=== PATIENT | male | born 1965 | race African-American/Black ===

== ENCOUNTER 2016-06-14 22:21 | Inpatient (IN) | payer MEDICAID ==
[~2016-06-14] VITALS: Ht 182.9 cm; Wt 104.3 kg
[~2016-06-14 22:21] MED LIST: ALDACTONE25 M1 PO; ASPIRIN81 M1 PO; ATORVASTATIN CA20 MG PO; LASIX20 MG PO; LISINOPRIL5 M1 PO; TOPROL XL25 MG PO
[2016-06-14 22:37] VITALS: BP 151/110
--- NOTE | 2016-06-14 22:53 | NUR ---
PT TAKEN TO [facility] FROM [facility]
--- NOTE | 2016-06-14 23:08 | NUR ---
PT RETURN FROM XRAY
--- NOTE | 2016-06-14 23:10 | NUR ---
W/C ASSIST TO BED 4
--- NOTE | 2016-06-14 23:17 | NUR ---
51Y/M PATIENT BIB FAMILY TO ED WITH C/O SOB X 2 WKS. PATIENT STATES SOB WITH VOMITING X 2 WKS WITH BLE EDEMA. DENIES ANY FEVER AT THIS TIME. HX:HTN,CHF, SMOKING AND DRINKS 2 BEERS/DAY; SKIN IS PINK/WARM/DRY; AAOX4, W/C ASSIST; LUNGS CLEAR BL; HR EVEN AND REGULAR; PT DENIES ANY FEVER, OR COUGH AT THIS TIME; C/O CHEST TIGHNESS, PATIENT STATES PAIN OF 8/10 AT THIS TIME; VSS; PATIENT POSITIONED FOR COMFORT; HOB ELEVATED; BEDRAILS UP X2; BED DOWN. ER MD MADE AWARE OF PT STATUS.
--- NOTE | 2016-06-14 23:28 | NUR ---
Dr. Patel evaluating patient at bedside.
[2016-06-14] MEDS ORDERED: METOPROLOL 50 MG TAB PO ONE (23:50)
[2016-06-14] MEDS ORDERED: ASPIRIN 81 MG TAB.CHEW PO ONE (23:50)
[2016-06-14] MEDS ORDERED: FUROSEMIDE 40 MG/4 ML VIAL IVP ONE (23:50)
[2016-06-15] MEDS ORDERED: NACL 0.9% 1,000 ML IV SCH (01:03)
[2016-06-15] MEDS ORDERED: ACETAMINOPHEN 325 MG TAB PO PRN (01:05)
[2016-06-15] MEDS ORDERED: HYDROcodone/APAP 5/325 MG 1 TAB TAB PO PRN (01:05)
[2016-06-15] MEDS ORDERED: ONDANSETRON 4 MG/2 ML VIAL IVP PRN (01:05)
[2016-06-15] MEDS ORDERED: MORPHINE SULFATE 2 MG/ML SYR IVP PRN (01:05)
--- NOTE | 2016-06-15 01:14 | NUR ---
Patient will be admitted to care of . Admited to TELEMERY. Will go to room 113. Belongings list completed. Report to YU ABARCA.
--- NOTE | 2016-06-15 01:30 | NUR ---
ADMITTED 51 Y/O MALE TO TELE FROM ER AT 0120 AM VIA GURNEY WITH DX: CHF AND ALTERED MENTAL STATUS. INITIAL ASSESSMENT, BODY CHECK AND ADMISSION INTERVENTIONS DONE. PATIENT AAO X 4, ABLE TO FOLLOW COMMAND AND MAKE NEEDS KNOWN AND AMBULATE WITH LABOR MEDIATOR. NO S/S OF DISTRESS OR SOB NOTED UPON ADMISSION. SKIN WARM/DRY TO TOUCH WITH NORMAL COLOR AND INTACT; NOTED +2 NON-PITTING EDEMA TO BLE. INSTRUCTED PATIENT TO UNIT/ENVIRONMENT. ALSO, DISCUSSED PLAN OF CARE, PAIN MANAGEMENT AND MEDICATION REGIMEN WITH PATIENT AND PATIENT VERBALIZED UNDERSTANDING. PLACED PATIENT ON SAFETY/FALL PRECAUTIONS AND CONTACT ISOLATION FOR HX: MRSA NARES. WILL CONTINUE TO MONITOR AND CALL LIGHT LEFT WITHIN REACH.
[2016-06-15 01:44] VITALS: BP 134/99
--- NOTE | 2016-06-15 02:18 | NUR ---
ADMINISTERED IVF NS TKO MD'S ORDERED. GAVE ONE PAIR OF CHICKEN SANDWICH AND ONE BOX OF APPLE JUICE PER REQUEST. PATIENT RESTED COMFORTABLY IN BED WITH ALL NEEDS ATTENDED. ELEVATED HOB AND BOTH LEGS ON PILLOW. WILL CONTINUE TO MONITOR.
[2016-06-15 04:00] VITALS: BP 133/98
--- NOTE | 2016-06-15 04:40 | NUR ---
PATIENT REFUSED AM CARE. V/S REMAINED WNL AND NO APPARENT DISTRESS NOTED. WILL CONTINUE TO MONITOR.
--- NOTE | 2016-06-15 07:32 | NUR ---
ENDORSED PLAN OF CARE TO HATTIE RN, AT BEDSIDE. PATIENT RESTED WELL AND REMAINED IN STABLE CONDITION WITHOUT DISTRESS NOTED.
--- NOTE | 2016-06-15 07:33 | NUR ---
RECEIVED REPORT FROM DIAMOND BROKER RN. PT IS AWAKE, A/O X 4, AMBULATORY. NO S/S OF CARDIAC/RESPIRATORY DISTRESS OR DISCOMFORT. LAC 20 SL INTACT. SAFETY MEASURES IN PLACE, CALL LIGHT WITHIN REACH. WILL CONTINUE PLAN OF CARE AND CONTINUE TO MONITOR.
[2016-06-15 08:00] VITALS: BP 132/97
[2016-06-15] MEDS ORDERED: LISINOPRIL 5 MG TAB PO SCH (09:00)
[2016-06-15] MEDS ORDERED: SPIRONOLACTONE 25 MG TAB PO SCH (09:00)
[2016-06-15] MEDS ORDERED: METOPROLOL SUCCINATE 50 MG TABER PO SCH (09:00)
[2016-06-15] MEDS ORDERED: ASPIRIN 81 MG TAB.CHEW PO SCH (09:00)
[2016-06-15] MEDS ORDERED: FUROSEMIDE 40 MG/4 ML VIAL IVP SCH ×2 (09:00→17:00)
[2016-06-15] MEDS ORDERED: FUROSEMIDE 20 MG TAB PO SCH (09:00)
--- NOTE | 2016-06-15 09:00 | NUR ---
ADMINISTERED AM MEDS, PT TOLERATED WELL. NO S/S OF ACUTE DISTRESS OR DISCOMFORT. CALL LIGHT WITHIN REACH. WILL CONTINUE TO MONITOR.
--- NOTE | 2016-06-15 11:15 | NUR ---
IV REMOVED AND INTACT. ARM BANDS REMOVED. PT HAS NO S/S OF ACUTE DISTRESS OR DISCOMFORT. PT IN STABLE CONDITION. WHEELCHAIRED PT TO FRONT LOBBY TO BE PICKED UP BY HIS FRIEND.
[2016-06-15] MEDS ORDERED: ATORVASTATIN 20 MG TAB PO SCH (21:00)
== END 2016-06-15 11:15 | disposition left against medical advice (07) | DRG 194 ==
LOC: MED 22:21 → MTU 06-15 01:05
PROVIDERS: ADMIT Student in an Organized Health Care Education/Training Program; ATTEND Student in an Organized Health Care Education/Training Program
DX: I11.0 Hypertensive heart disease with heart failure (principal); N17.0 Acute kidney failure with tubular necrosis; E43 Unspecified severe protein-calorie malnutrition; I50.43 Acute on chronic combined systolic (congestive) and diastolic (congestive) heart failure; R07.9 Chest pain, unspecified; R41.82 Altered mental status, unspecified; F10.10 Alcohol abuse, uncomplicated; F19.10 Other psychoactive substance abuse, uncomplicated; F14.10 Cocaine abuse, uncomplicated; Z72.0 Tobacco use; Z79.82 Long term (current) use of aspirin; Z79.899 Other long term (current) drug therapy; Z91.19 Patient's noncompliance with other medical treatment and regimen; Z71.6 Tobacco abuse counseling; Z68.31 Body mass index [BMI] 31.0-31.9, adult